=== PATIENT | male | born 1980 | race Two or more races ===

== ENCOUNTER 2024-11-13 16:04 | Emergency (ER) | payer OTHER ==
[~2024-11-13] VITALS: Ht 177.8 cm; Wt 108.2 kg
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
--- NOTE | 2024-11-13 17:42 | DVH ---
EXAM: CT UPPER EXTREMITY WO CONTRAST INDICATION: Left arm pain EXAM DATE: 11/13/2024 04:40 PM COMPARISON: None TECHNIQUE: Multiple axial CT images of the left upper extremity were obtained using bone algorithm. A xial and coronal reformatting was done. Bone and soft tissue windows were reviewed. Radiation Dose Information: CT Dose: CTDI volume is 32.98 mGy. Dose-length product is 1252.18 mGy*cm Findings/Impression: Moderately displaced, comminuted fracture of the left mid humeral diaphysis. Mild soft tissue edema. There is no evidence of dislocation, blastic, or lytic lesions. No radiopaque foreign bodies. No joint effusion.
[2024-11-13] MEDS: HYDROmorphone HCL 2 MG/ML VL/or syr IM ONE (18:14)
[2024-11-13] MEDS ORDERED: PERCOT PO (19:49)
[2024-11-13] MEDS ORDERED: HYDROMORPHONE HCL 1 MG/ML INJ IM ONE (20:00)
[2024-11-13 20:30] VITALS: PULSE 111; RESP 24; TEMP 98.7; O2SAT 95
[2024-11-13 21:14] VITALS: BP 99/58; PULSE 111; RESP 24
[2024-11-13] MEDS: HYDROMORPHONE HCL 1 MG/ML INJ IV ONE (21:14)
== END 2024-11-13 21:20 | disposition home or self-care (01) ==
LOC: EDBD 16:04 → ER 16:04
DX: S42.292A Other displaced fracture of upper end of left humerus, initial encounter for closed fracture (principal); V86.56XA Driver of dirt bike or motor/cross bike injured in nontraffic accident, initial encounter; Y93.89 Activity, other specified; Y92.89 Other specified places as the place of occurrence of the external cause; Y99.8 Other external cause status
CPT/HCPCS: 73200; 96372; 96374; 99285; J1170; J1171; 29125